=== PATIENT | female | born 1950 | race Caucasian/White ===

== ENCOUNTER 2017-06-21 07:34 | Emergency (ER) | payer OTHER ==
[~2017-06-21] VITALS: Ht 162.6 cm; Wt 52.7 kg
[2017-06-21] MEDS ORDERED: FIORICET 50-301 EAC1 PO (09:14)
[2017-06-21 10:04] VITALS: BP 116/67
== END 2017-06-21 10:08 | disposition home or self-care (01) ==
LOC: EME 07:34 → EDBD 07:34 → EME 10:08
DX: R51 Headache (principal); Z88.0 Allergy status to penicillin
CPT/HCPCS: J0780; J1885; J7040